=== PATIENT | male | born 1985 ===

== ENCOUNTER 2017-09-21 16:11 | Outpatient (REF) | payer MEDICAID, SELFPAY ==
[2017-09-21 23:02] LABS: D-Dimer 404 ng/mlFEU (<500)
== END 2017-09-21 16:12 ==
LOC: NCHCN 16:11
PROVIDERS: PCP Physician Assistant Medical; Visit Provider Physician Assistant Medical
DX: R60.9 Edema, unspecified (principal)
CPT/HCPCS: 85379